=== PATIENT | male | born 1965 | race Caucasian/White ===

== ENCOUNTER 2017-12-16 12:58 | Emergency (ER) | payer SELFPAY ==
[~2017-12-16] VITALS: Ht 172.7 cm; Wt 74.0 kg
[2017-12-16 13:08] VITALS: BP 134/84
[2017-12-16] MEDS ORDERED: LIDOCAINE 2%, 20ML SQ ONE (13:30)
[2017-12-16] MEDS ORDERED: LIDOCAINE-MPF 1%, 5ML ONE ×2 (14:27→14:51)
[2017-12-16] MEDS ORDERED: LIDOCAINE-MPF 1%, 5ML INFIL ONE (14:30)
== END 2017-12-16 16:28 | disposition home or self-care (01) ==
LOC: ED 15:22
DX: S61.210A Laceration without foreign body of right index finger without damage to nail, initial encounter (principal); S61.214A Laceration without foreign body of right ring finger without damage to nail, initial encounter; W25.XXXA Contact with sharp glass, initial encounter; Y93.G1 Activity, food preparation and clean up; Y92.89 Other specified places as the place of occurrence of the external cause; Y99.8 Other external cause status
CPT/HCPCS: 12001; 99284; J3490